=== PATIENT | male | born 1950 | race Caucasian/White ===

== ENCOUNTER 2018-11-16 13:08 | Observation (INO) | payer BC, OTHER ==
[2018-11-16] MEDS ORDERED: Ondansetron ODT 4 MG TAB ONE (13:50)
[2018-11-16 14:00] LABS: #Eosinphils 0.2 thou/uL (0.0-0.7); #Lymphocytes 0.3 thou/uL (1.20-3.40); #Monocytes 0.6 thou/uL (0.11-0.59); #Neutrophils 8.7 thou/uL (1.40-6.50); %Basophils 0.3 % (0.0-1.0); %Eosinophils 1.8 % (0.0-10.0); %Lymphocytes 3.3 % (21.0-51.0); %Monocytes 5.7 % (0.0-10.0); %Neutrophils 88.9 % (42.0-75.0); Hemoglobin 15.4 g/dL (14.0-18.0); Mean Corpuscular HGB CONC 32.4 g/dL (32.0-36.0); Mean Corpuscular Hemoglobin 28.1 pg (27.0-31.0); Mean Corpuscular Volume 86.7 fL (78.0-98.0); Mean Platelet Volume 8.9 fL (7.4-10.4); Platelet Count 145 thou/uL (130-400); Red Blood Cell (RBC) Count 5.47 mill/uL (4.70-6.10); White Blood Cell (WBC) Count 9.8 thou/uL (4.8-10.8)
[2018-11-16] MEDS ORDERED: Metoclopramide HCl 10 MG/2 ML VIAL ONE (14:17)
[2018-11-16 14:25] LABS: ALT (SGPT) 19 U/L (8-55); AST (SGOT) 20 U/L (5-34); Albumin 4.3 g/dL (3.4-4.8); Alkaline Phosphatase 54 U/L (40-150); Anion Gap 15 mmol/L (10-20); BUN (Urea Nitrogen) 21 mg/dL (8.4-25.7); Bilirubin, Total 0.9 mg/dL (0.2-1.2); Calc. Creatinine Clearance 0 mL/min (70-130); Calcium 9.5 mg/dL (7.8-10.44); Carbon Dioxide 20 mmol/L (23-31); Chloride 108 mmol/L (98-107); Estimated GFR-MDRD 49; Globulin 2.5 g/dL (2.4-3.5); Glucose 102 mg/dL (80-115); Potassium 4.2 mmol/L (3.5-5.1); Protein, Total 6.8 g/dL (5.8-8.1); Sodium 139 mmol/L (136-145)
--- NOTE | 2018-11-16 14:53 | RAD ---
CHEST 1 VIEW: HISTORY: Hypotension. COMPARISON: Chest radiograph 04/13/2012. FINDINGS: Lungs are hypoinflated with vascular crowding. Spurious enlargement of the cardiac silhouette. No a cute osseous abnormality. IMPRESSION: Lung hypoinflation. Otherwise, no acute intrathoracic abnormality. POS: [facility]
--- NOTE | 2018-11-16 15:42 | CT ---
HEAD CT WITHOUT CONTRAST: 11/16/18 HISTORY: Nausea. Vomiting. Sweating. COMPARISON: None. FINDINGS: No parenchymal hemorrhage. No extra-axial hematoma. No midline shift. Basilar cisterns are patent. Br ain volume is age appropriate. Cortical naqvi-white matter differentiation is preserved. No evidence of hydrocephalus. Adequate aeration of the sinuses and mastoid air cells. Calvarium is intact. IMPRESSION: No acute intracranial process. POS: [facility]
[2018-11-16] MEDS ORDERED: Acetaminophen 325 MG TAB PO PRN (22:36)
[2018-11-16] MEDS ORDERED: Ondansetron PF 4 MG/2 ML Vial IVP PRN (22:36)
[2018-11-16] MEDS ORDERED: Ondansetron ODT 4 MG TAB SL PRN (22:36)
[2018-11-16] MEDS ORDERED: Sodium Chloride 0.9% 1,000 ML IV SCH (22:45)
[2018-11-16 23:04] VITALS: BMI 32.0
--- NOTE | 2018-11-17 03:54 | HP ---
PRIMARY CARE PHYSICIAN: Dr. Jeremiah Chery. CHIEF COMPLAINT: Hypotension and presyncope. HISTORY OF PRESENT ILLNESS: Mr. Alberts is a pleasant 68-year-old male who has no prior medical history, who reported to [facility] earlier today after symptoms of diaphoresis, dizziness, and presyncope during choir earlier this morning. He had seek further medical attention at a local urgent care where it was determined that his blood pressure be low in the 70s systolic. He was then transferred to [facility] for further workup of symptoms. Upon arrival, blood pressure was noted to be improved at 102/68; however, orthostatic vital signs were checked and were quite positive with his systolic blood pressure dropping in the 70s upon standing. He was treated with IV fluids including normal saline at 90 mL/hr, due to his nausea he was given IV Reglan 10 mg and 4 mg of some sublingual Zofran. Prior to the maintenance fluids, he was given 1 L of IV normal saline. His symptoms of dizziness, nausea, and diaphoresis resolved. EKG showed sinus bradycardia with rates in the 50s. He was monitored on tele and his pulse improved to the 60s. He had denied any fever or chills. Denied any headache or dizziness. Denied any chest pain, shortness of breath, or abdominal pain. Denied any further nausea or vomiting, or any numbness, tingling, or weakness. He underwent a chest x-ray which showed hypoinflation of the lungs, otherwise no acute intrathoracic abnormality. Brain CT showed no acute intracranial process. It was determined that the patient will be admitted for further workup and management of his symptoms. He would be maintained on IV fluids including normal saline. REVIEW OF SYSTEMS: All other systems reviewed and found to be negative unless mentioned in the HPI. PAST MEDICAL HISTORY: None. PAST SURGICAL HISTORY: None. PAST PSYCHIATRIC HISTORY: None. SOCIAL HISTORY: Denies any alcohol, tobacco, illicit drug use. KNOWN ALLERGIES: None. CURRENT HOME MEDICATIONS: None. PHYSICAL EXAMINATION: VITAL SIGNS: Blood pressure 123/66, pulse 62, respirations 18, temp 99.3 degrees Fahrenheit, O2 saturation is 93% on room air. GENERAL: The patient is awake, alert, and oriented x3. No acute distress noted. HEENT: Atraumatic, normocephalic. Pupils are round and reactive to light. Extraocular muscles intact. Moist mucous membranes noted. NECK: Soft and supple. No JVD. No bruit noted. CARDIAC: Positive S1 and S2. Regular rate and rhythm. No murmurs auscultated. RESPIRATORY: Clear to auscultation bilaterally. No wheezes, rales, or rhonchi. ABDOMEN: Soft and nontender. Bowel sounds present. No rebound. No rigidity. MUSCULOSKELETAL: Strength 5+ bilaterally upper and lower extremities. Pedal and radial pulses palpable bilaterally. Moves all extremities equally. No edema noted. NEUROLOGIC: Cranial nerves II through XII grossly intact. No focal deficits noted. Speech normal and intact. Gait not assessed. SKIN: Warm, dry, and intact. No bruising. No ulcerations. No lesions. PSYCHIATRIC: Good mood and affect. LABORATORY DATA: WBC 9.8, RBC 5.47, hemoglobin 15.4, platelet 145. Sodium 139, potassium 4.2, anion gap 15, creatinine 1.43, estimated GFR 49. Lactic acid 1.3. Troponin less than 0.010. DIAGNOSTIC IMAGIN. CT of brain without contrast showed no acute intracranial process. 2. Chest x-ray showed lung hypoinflation, otherwise no acute intrathoracic abnormality. ASSESSMENT AND PLAN: 1. Presyncopal episode, CT of head unremarkable. Check echocardiogram and carotid Doppler in the morning. Check TSH and lipid panel. 2. Orthostatic hypotension, continue with IV normal saline, recheck orthostatic vital signs. Place sequential compression devices. 3. Acute kidney injury, likely secondary to dehydration, continue IV normal saline, and recheck BMP in the morning. 4. Deep venous thrombosis and gastrointestinal prophylaxis. 5. Code status, full code. DISPOSITION: Pending further workup and clinical findings. Job ID: [id number]
[2018-11-17] MEDS: Sodium Chloride 0.9% 1,000 ML IV SCH ×2 (03:55)
[2018-11-17] MEDS ORDERED: Ondansetron PF 4 MG/2 ML Vial IVP PRN (04:10)
[2018-11-17] MEDS ORDERED: Ondansetron ODT 4 MG TAB SL PRN (04:11)
[2018-11-17] MEDS ORDERED: Acetaminophen 325 MG TAB PO PRN (04:11)
[2018-11-17 06:26] LABS: #Eosinphils 0.1 thou/uL (0.0-0.7); #Lymphocytes 0.4 thou/uL (1.20-3.40); #Monocytes 0.5 thou/uL (0.11-0.59); #Neutrophils 4.1 thou/uL (1.40-6.50); %Basophils 0.5 % (0.0-1.0); %Eosinophils 1.1 % (0.0-10.0); %Lymphocytes 8.6 % (21.0-51.0); %Monocytes 9.4 % (0.0-10.0); %Neutrophils 80.4 % (42.0-75.0); Hemoglobin 13.2 g/dL (14.0-18.0); Mean Corpuscular HGB CONC 32.5 g/dL (32.0-36.0); Mean Corpuscular Hemoglobin 28.2 pg (27.0-31.0); Mean Corpuscular Volume 86.8 fL (78.0-98.0); Mean Platelet Volume 8.6 fL (7.4-10.4); Platelet Count 131 thou/uL (130-400); RBC Distribution Width 12.9 % (11.5-14.5); Red Blood Cell (RBC) Count 4.66 mill/uL (4.70-6.10); White Blood Cell (WBC) Count 5.2 thou/uL (4.8-10.8)
[2018-11-17 06:45] LABS: Anion Gap 12 mmol/L (10-20); BUN (Urea Nitrogen) 25 mg/dL (8.4-25.7); Calc. Creatinine Clearance 83 mL/min (70-130); Calcium 8.3 mg/dL (7.8-10.44); Carbon Dioxide 22 mmol/L (23-31); Cardiac Risk 3.9 (Less than 4.5); Chloride 109 mmol/L (98-107); Cholesterol 129 mg/dl (< 200 Desired); Estimated GFR-MDRD 52; Glucose 97 mg/dL (80-115); HDL Cholesterol 33 mg/dL (>60 Neg Risk); LDL Cholesterol, Calculated 78 mg/dL; Potassium 3.8 mmol/L (3.5-5.1); Sodium 139 mmol/L (136-145); Triglycerides 88 mg/dL (Less than 150)
[2018-11-17] MEDS ORDERED: Prevnar 13-Val Conj/PF 0.5 ML SYRINGE IM ONE (09:00)
[2018-11-17] MEDS: Famotidine 20 MG TAB PO SCH ×2 (10:05→20:45)
[2018-11-17] MEDS: Enoxaparin Sodium 40 MG/0.4 ML SYRINGE SC SCH (10:05)
--- NOTE | 2018-11-17 11:31 | ULT ---
ULTRASOUND DOPPLER DUPLEX CAROTID: Date: 11/17/18 HISTORY: 68-year-old male with presyncope. TECHNIQUE: Leggett scale, color flow, and spectral analysis of major arteries of neck. FINDINGS: Mild intimal thickening of bilateral common carotid arteries and proximal internal carotid arteries, including carotid bulbs. No high grade atherosclerotic plaque at internal carotid arteries. Highest peak systolic velocities in the internal carotid arteries are 60 cm/s on the right and 75 cm/ s on the left. ICA/CCA ratios are 0.6 on the right and 0.8 on the left. Vertebral artery flow is ante grade bilaterally. IMPRESSION: No hemodynamically significant stenosis. POS: [facility]
[2018-11-18] MEDS: Famotidine 20 MG TAB PO SCH (08:41)
[2018-11-18] MEDS: Enoxaparin Sodium 40 MG/0.4 ML SYRINGE SC SCH (08:41)
[2018-11-18 08:47] VITALS: TEMP 99.7
--- NOTE | 2018-11-18 10:32 | HP ---
PRIMARY CARE PROVIDER: Jeremiah Chery. HISTORY OF PRESENT ILLNESS: The patient was seen in [facility], admitted to the [facility]. He has had some nausea, feeling poorly, had gone to an outpatient clinic and had been noted to have orthostatic hypotension, was referred to the emergency room and subsequently to our facility. PHYSICAL EXAMINATION: VITAL SIGNS: On admission to the hospital, his blood pressure was 123/66, pulse 62, respirations 18, temperature 99.3. CHEST: Clear. ABDOMEN: Benign. HEART: Had a regular rate and rhythm. No murmurs. LABORATORY DATA: His CBC was unremarkable. He did have an elevated creatinine of 1.43. CT scan of the brain revealed no acute process. He eventually had echocardiogram and carotid Dopplers, which were unremarkable. Interviewing him, he states he feels fine. He is very desirous of being discharged. I have discussed the case with Katiana Bills, GAURI. Concur with discharging him. I have requested that he see his PCP in 7 days. Job ID: [id number]
[2018-11-18 10:48] VITALS: BP 166/84
--- NOTE | 2018-11-19 01:38 | DIS ---
DATE OF ADMISSION: 11/16/2018 DATE OF DISCHARGE: 11/18/2018 PRIMARY CARE PHYSICIAN: Dr. Chery. CONSULTANTS: None. PROCEDURES: 1. Chest x-ray, lung hypoinflation, otherwise no acute intrathoracic abnormalities. 2. Brain CT, no acute intracranial process. 3. Echocardiogram, ejection fraction is visually estimated at 60% to 65%, grade 2/3 diastolic dysfunction, sigmoid-shaped septum without hemodynamically significant left ventricular outflow tract obstruction, moderately dilated left atrium, mild mitral regurgitation, aortic valve sclerosis but opens well, mild tricuspid regurgitation, dilated aortic root at 3.9 cm. No evidence of any pericardial effusion. 4. Carotid Dopplers show no hemodynamically significant stenosis. HOSPITAL COURSE: Mr. Alberts is a 68-year-old male, who presented to the emergency room after symptoms of diaphoresis, dizziness, presyncope during choir earlier that morning. He had gone to his PCP office, where his blood pressure had measured low in the 70 systolic and then he was transferred to [facility] for further management. On arrival to the emergency room, blood pressure was noted to be improved at 102/68. Orthostatic vital signs were checked and were positive with pressure dropping into the 70s upon standing. He was treated with IV fluids and given some Reglan and Zofran for some nausea. He was given a bolus of 1 L of normal saline in the emergency room and then maintenance dose of 90 mL per hour. He reports that after the bolus and medications, his symptoms of dizziness, nausea and diaphoresis had resolved. Initial EKG showed sinus bradycardia with rates in the 50s. He denied any chest pain, shortness of breath, or abdominal pain. Studies as above. The patient was admitted to the observation unit for further management including IV fluids and monitoring. While on the observation unit, the patient did not show any significant changes to blood pressure. Checked for orthostasis. Blood pressure systolic ranged from 115-138, lowest was 112. He was continued on IV fluids. This morning during exam, the patient denied any problems, was very anxious about returning home. He did have initial creatinine of 1.43, which improved at 1.37. 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 Dr. Kong also saw the patient prior to discharge and agreed to plan. The patient remained stable. The patient was discharged home. DISCHARGE DIAGNOSES: 1. Hypotension, resolved. 2. Orthostatic hypotension, resolved. 3. Acute kidney injury, improved. 4. Nausea, resolved. REVIEW OF SYSTEMS: The patient was examined prior to discharge. Denied any chest pain, shortness of breath, dizziness, numbness, tingling, any focal sensory or motor deficits. All other systems reviewed and are negative unless mentioned in the hospital course. PHYSICAL EXAMINATION: VITAL SIGNS: Temp 98.9, pulse 73, respirations 16, blood pressure 133/60, and pulse ox is 92% on room air. CONSTITUTIONAL: The patient is in no distress. HEENT: Head is atraumatic and normocephalic. Eyes; eyelids are normal to inspection. Pupils are equally round and reactive to light. ENT; mouth exam is normal. Mucous membranes are moist. NECK: Normal range of motion. Trachea is midline. RESPIRATORY/CHEST: No respiratory distress. Breath sounds are clear. CARDIOVASCULAR: Regular rate and rhythm. Heart sounds are normal. ABDOMEN: Soft, nontender. Bowel sounds are heard. BACK: Normal range of motion. EXTREMITIES: Upper extremity, normal range of motion. Motor strength is normal. Pulses equal bilaterally. Lower extremity, normal range of motion. Motor strength is normal. Pedal pulses equal bilaterally. NEURO: Speech is normal. Strength 5/5 to all 4 extremities. Alert and oriented x3. SKIN: Warm, dry, normal in color. PSYCH: Normal affect. ALLERGIES: NONE. MEDICATIONS: None. DISCHARGE CONDITION: Stable. The patient was discharged home. REFERRALS: Dr. Chery within 1 week. Recommended to have kidney function retested. Job ID: [id number]
== END 2018-11-18 10:49 | disposition home or self-care (01) ==
LOC: ERS 13:08 → 2SW 16:19 → INTOOBSV 16:19 → ERS 16:58
PROVIDERS: ADMIT Internal Medicine; ATTEND Internal Medicine
DX: I95.1 Orthostatic hypotension (principal); N17.9 Acute kidney failure, unspecified; I34.0 Nonrheumatic mitral (valve) insufficiency; I35.8 Other nonrheumatic aortic valve disorders; I36.1 Nonrheumatic tricuspid (valve) insufficiency; R11.0 Nausea
CPT/HCPCS: 36415; 70450; 71045; 80048; 80053; 80061; 83605; 84443; 84484; 85025; 86850; 86900; 86901; 90471; 90662; 90670; 93005; 93306; 93880; 96361; 96365; 96372; G0008; G0009; G0378; J1650; J2765; Q0162